=== PATIENT | female | born 1995 | race American Indian/Alaskan Native ===

== ENCOUNTER 2019-11-14 09:12 | Emergency (ER) | payer SELFPAY ==
[2019-11-14 09:38] VITALS: BP 101/62
[2019-11-14] MEDS ORDERED: SODIUM CHLORIDE 0.9% 1000 ML 1,000 ML IV ONE (10:15)
--- NOTE | 2019-11-14 10:15 | Emergency Department Report ---
ED Female HPI - General Chief complaint: Dizziness Stated complaint: DIZZY Time Seen by Provider: 11/14/19 10:12 Source: patient Mode of arrival: Ambulatory Limitations: No Limitations - History of Present Illness Initial comments: Chief complaint: Feeling faint HPI this is a 24-year-old female who is currently 35 weeks estimated due date December 17, 2019 who presents with several weeks of feeling faint. She feels lightheaded. She has had dull global mild headache. She recently returned to live in [place] after living in [place]. She does not have any care established here. She denies vaginal bleeding. She denies vaginal discharge. She denies contraction. She denies abdominal pain. She denies chest pain. Denies shortness of breath. She has been hydrating well. She denies nausea. She denies vomiting. Lightheadedness is worse when she stands up. She did not have any complications with her previous . She has had 2 vaginal deliveries. 1 section. Complaint: other (Several weeks of feeling lightheaded) -: Gradual, week(s) (Several weeks) Severity: mild Consistency: constant Improves with: none Worsens with: other (Standing) Are you Now?: Yes Associated Symptoms: headaches - Related Data Previous Rx's Medication Instructions Recorded Last Taken Type Ibuprofen [Motrin 600 MG tab] 600 mg PO Q8H PRN #30 tablet 04/05/16 Unknown Rx Ondansetron [Zofran TAB] 4 mg PO Q8HR PRN #10 tablet 04/05/16 Unknown Rx Allergies Allergy/AdvReac Type Severity Reaction Status Date / Time No Known Allergies Allergy Verified 11/14/19 09:34 ED Review of Systems ROS: Stated complaint: DIZZY Other details as noted in HPI Comment: All other systems reviewed and negative Constitutional: denies: fever, malaise Respiratory: denies: cough, shortness of breath Cardiovascular: denies: chest pain Gastrointestinal: denies: abdominal pain, nausea, vomiting Neurological: denies: numbness, paresthesias, confusion ED Past Medical Hx - Past Medical History Previous Medical History?: No Hx Hypertension: No Hx Congestive Heart Failure: No Hx Diabetes: No Hx Deep Vein Thrombosis: No Hx Renal Disease: No Hx Sickle Cell Disease: No Hx Seizures: No Hx Asthma: No Hx COPD: No Hx HIV: No - Surgical History Past Surgical History?: Yes Additional Surgical History: - Social History Smoking Status: Never Smoker Substance Use Type: None - Medications Home Medications: Home Medications Medication Instructions Recorded Confirmed Last Taken Type Ibuprofen [Motrin 600 MG tab] 600 mg PO Q8H PRN #30 tablet 04/05/16 Unknown Rx Ondansetron [Zofran TAB] 4 mg PO Q8HR PRN #10 tablet 04/05/16 Unknown Rx ED Physical Exam - General Limitations: No Limitations General appearance: alert, in no apparent distress - Head Head exam: Present: atraumatic, normocephalic - Eye Eye exam: Present: normal appearance - ENT ENT exam: Present: mucous membranes moist - Neck Neck exam: Present: normal inspection, full ROM - Respiratory Respiratory exam: Present: normal lung sounds bilaterally. Absent: respiratory distress, wheezes, rales, rhonchi - Cardiovascular Cardiovascular Exam: Present: regular rate, normal rhythm, normal heart sounds. Absent: systolic murmur, diastolic murmur, rubs, gallop - GI/Abdominal GI/Abdominal exam: Present: soft, normal bowel sounds. Absent: distended, tenderness, guarding, rebound - Extremities Exam Extremities exam: Present: normal inspection - Neurological Exam Neurological exam: Present: alert, oriented X3 - Psychiatric Psychiatric exam: Present: normal affect, normal mood - Skin Skin exam: Present: warm, dry, intact, normal color. Absent: rash ED Course Vital Signs 11/14/19 09:36 Temperature 98.2 F Pulse Rate 107 H Respiratory 18 Rate Blood Pressure 101/62 O2 Sat by Pulse 97 Oximetry ED Medical Decision Making - Lab Data Result diagrams: 11/14/19 10:16 11/14/19 10:16 - Medical Decision Making This is a 24-year-old female who is currently 35 weeks who has lightheadedness. She feels faint. No syncope. I suspect dehydration. No indication of cardiac pulmonary cause such as pulmonary embolism. Blood pressure is normal. She was strongly encouraged to obtain care. Discharged home with outpatient referrals. Upon lab review, there is mild anemia, chemistry revealed volume contraction. Patient received IV fluid therapy in emergency department. Encouraged to continue hydration efforts. Critical care attestation.: If time is entered above; I have spent that time in minutes in the direct care of this critically ill patient, excluding procedure time. ED Disposition Clinical Impression: Lightheadedness, Third trimester Disposition: DC-01 TO HOME OR SELFCARE Is pt being admited?: No Does the pt Need Aspirin: No Condition: Stable Instructions: Near Syncope (ED), Lightheadedness (ED) Referrals: ALVIN MARTELL MD [Staff Physician] - 3-5 Days
[2019-11-14 10:27] LABS: Basophils % (Auto) 0.2 % (0.0-1.8); Eosinophils % (Auto) 0.7 % (0.0-4.3); Hematocrit 27.9 % (30.3-42.9); Hemoglobin 9.9 gm/dl (10.1-14.3); Lymphocytes # (Auto) 1.3 K/mm3 (1.2-5.4); Lymphocytes % (Auto) 19.6 % (13.4-35.0); Mean Corpuscular HGB Conc 36 % (30-34); Mean Corpuscular Volume 85 fl (79-97); Monocytes # (Auto) 0.5 K/mm3 (0.0-0.8); Monocytes % (Auto) 7.6 % (0.0-7.3); Platelet Count 253 K/mm3 (140-440); Red Blood Count 3.27 M/mm3 (3.65-5.03); Red Cell Distribution Width 13.8 % (13.2-15.2)
[2019-11-14 10:45] LABS: BUN/Creatinine Ratio 18; Blood Urea Nitrogen 7 mg/dL (7-17); Calcium 8.9 mg/dL (8.4-10.2); Hemolysis Index 1
== END 2019-11-14 11:53 | disposition home or self-care (01) ==
LOC: ED 09:12
DX: O26.893 Other specified pregnancy related conditions, third trimester (principal); R42 Dizziness and giddiness; R51 Headache; Z3A.35 35 weeks gestation of pregnancy; Z79.1 Long term (current) use of non-steroidal anti-inflammatories (NSAID); Z98.890 Other specified postprocedural states; Z79.899 Other long term (current) drug therapy
CPT/HCPCS: 36415; 80048; 85025; 96360; 99283; J7030

== ENCOUNTER 2021-03-24 14:20 | Emergency (ER) | payer MEDICAID ==
[2021-03-24 15:40] VITALS: BP 143/93
--- NOTE | 2021-03-24 16:50 | Emergency Department Report ---
- General Chief complaint: Skin Rash Stated complaint: BUMP OF CHEST/MISSED PERIOD Time Seen by Provider: 03/24/21 15:42 Source: patient Mode of arrival: Ambulatory Limitations: No Limitations - History of Present Illness Initial comments: Patient is a 25-year-old female presents emergency room with complaints of a bump to her right chest wall that she noticed yesterday. She denies being bit by anything, she denies being cut or scrape by anything. She denies any drainage, fever, chills, vomiting. Patient states that she is also had a regular menstrual cycles. She states that in February he only had a cycle for 2 days and has not yet had a cycle in March. She denies any abdominal pain or vaginal bleeding. No past medical history. No allergies medications. She has not followed up with [facility] regarding her cycle irregularity. - Related Data Previous Rx's Medication Instructions Recorded Last Taken Type Ibuprofen [Motrin 600 MG tab] 600 mg PO Q8H PRN #30 tablet 04/05/16 Unknown Rx Ondansetron [Zofran TAB] 4 mg PO Q8HR PRN #10 tablet 04/05/16 Unknown Rx Ferrous Sulfate [Feosol 325 MG tab] 325 mg PO BID #60 tablet 12/26/19 Unknown Rx Ibuprofen [Motrin] 600 mg PO Q6H PRN #60 tablet 12/26/19 Unknown Rx Mupirocin [Bactroban 2% OINT] 1 applic TP TID #1 tube 03/24/21 Unknown Rx Sulfamethoxazole/Trimethoprim 1 each PO BID 7 Days #14 tablet 03/24/21 Unknown Rx [Bactrim DS TAB] Allergies Allergy/AdvReac Type Severity Reaction Status Date / Time No Known Allergies Allergy Verified 11/14/19 09:34 Abscess Boil HPI - HPI Chief Complaint: Skin Rash Stated Complaint: BUMP OF CHEST/MISSED PERIOD Time Seen by Provider: 03/24/21 15:42 Home Medications: Previous Rx's Medication Instructions Recorded Last Taken Type Ibuprofen [Motrin 600 MG tab] 600 mg PO Q8H PRN #30 tablet 04/05/16 Unknown Rx Ondansetron [Zofran TAB] 4 mg PO Q8HR PRN #10 tablet 04/05/16 Unknown Rx Ferrous Sulfate [Feosol 325 MG tab] 325 mg PO BID #60 tablet 06/19/20 Unknown Rx Ibuprofen [Motrin] 600 mg PO Q6H PRN #60 tablet 12/26/19 Unknown Rx Mupirocin [Bactroban 2% OINT] 1 applic TP TID #1 tube 03/24/21 Unknown Rx Sulfamethoxazole/Trimethoprim 1 each PO BID 7 Days #14 tablet 03/24/21 Unknown Rx [Bactrim DS TAB] Allergies/Adverse Reactions: Allergies Allergy/AdvReac Type Severity Reaction Status Date / Time No Known Allergies Allergy Verified 11/14/19 09:34 ED Review of Systems ROS: Stated complaint: BUMP OF CHEST/MISSED PERIOD Other details as noted in HPI Comment: All other systems reviewed and negative ED Past Medical Hx - Past Medical History Hx Hypertension: No Hx Congestive Heart Failure: No Hx Diabetes: No Hx Deep Vein Thrombosis: No Hx Renal Disease: No Hx Sickle Cell Disease: No Hx Seizures: No Hx Asthma: No Hx COPD: No Hx HIV: No - Surgical History Additional Surgical History: - Social History Smoking Status: Current Every Day Smoker - Medications Home Medications: Home Medications Medication Instructions Recorded Confirmed Last Taken Type Ibuprofen [Motrin 600 MG tab] 600 mg PO Q8H PRN #30 tablet 04/05/16 12/26/19 Unknown Rx Ondansetron [Zofran TAB] 4 mg PO Q8HR PRN #10 tablet 04/05/16 12/26/19 Unknown Rx Ferrous Sulfate [Feosol 325 MG tab] 325 mg PO BID #60 tablet 12/26/19 Unknown Rx Ibuprofen [Motrin] 600 mg PO Q6H PRN #60 tablet 12/26/19 Unknown Rx Mupirocin [Bactroban 2% OINT] 1 applic TP TID #1 tube 03/24/21 Unknown Rx Sulfamethoxazole/Trimethoprim 1 each PO BID 7 Days #14 tablet 03/24/21 Unknown Rx [Bactrim DS TAB] ED Physical Exam - General Limitations: No Limitations General appearance: alert, in no apparent distress - Head Head exam: Present: atraumatic, normocephalic - Eye Eye exam: Present: normal appearance - ENT ENT exam: Present: mucous membranes moist - Neurological Exam Neurological exam: Present: alert, oriented X3 - Psychiatric Psychiatric exam: Present: normal affect, normal mood - Skin Skin exam: Present: warm, dry, other (there is a 1 cm area of induration present to the right upper chest wall just inferior to the clavicle, no fluctuance, no drainage, no necrosis, mild erythema, no crepitus) ED Course Vital Signs 03/24/21 15:36 Temperature 98 F Pulse Rate 99 H Respiratory 18 Rate Blood Pressure 143/93 O2 Sat by Pulse 99 Oximetry ED Medical Decision Making - Medical Decision Making Patient is a 25-year-old female presents emergency room with complaints of a bump to her right chest wall that she noticed yesterday. She denies being bit by anything, she denies being cut or scrape by anything. She denies any drainage, fever, chills, vomiting. Patient states that she is also had a regular menstrual cycles. She states that in February he only had a cycle for 2 days and has not yet had a cycle in March. She denies any abdominal pain or vaginal bleeding. No past medical history. No allergies medications. She has not followed up with [facility] regarding her cycle irregularity. Vitals are stable. On exam:there is a 1 cm area of induration present to the right upper chest wall just inferior to the clavicle, no fluctuance, no drainage, no necrosis, mild erythema, no crepitus. Examination appears consistent with a small area of cellulitis, no drainable abscess at this time. Patient's urine is negative. Patient states that she used to be on control in order to regulate her menses, discussed the importance of outpatient [facility] follow-up regarding her irregular menses. Patient given prescription for Bactrim. Advised patient Please take medication as prescribed. Please do warm compresses 3 times a day. Follow-up with a primary care doctor have area reexamined. Follow-up with [facility] regarding your irregular menses. Return to emergency room for any new or worsening symptoms. Critical care attestation.: If time is entered above; I have spent that time in minutes in the direct care of this critically ill patient, excluding procedure time. ED Disposition Clinical Impression: Irregular menses Cellulitis Qualifiers: Site of cellulitis: trunk Site of cellulitis of trunk: chest wall Qualified Code(s): L03.313 - Cellulitis of chest wall Disposition: HOME / SELF CARE / HOMELESS Is pt being admited?: No Does the pt Need Aspirin: No Condition: Stable Instructions: Cellulitis, Adult Additional Instructions: Please take medication as prescribed. Please do warm compresses 3 times a day. Follow-up with a primary care doctor have area reexamined. Follow-up with [facility] regarding your irregular menses. Return to emergency room for any new or worsening symptoms. Prescriptions: Sulfamethoxazole/Trimethoprim [Bactrim DS TAB] 1 each PO BID 7 Days #14 tablet Mupirocin [Bactroban 2% OINT] 1 applic TP TID #1 tube Referrals: [facility] [Provider Group] - 3-5 Days [facility] [Provider Group] - 3-5 Days Time of Disposition: 17:36 Print Language: GIBR[place]
[2021-03-24 17:31] LABS: HCG Qualitative,Urine Negative (Negative)
== END 2021-03-24 17:47 | disposition home or self-care (01) ==
LOC: ED 14:20
DX: N92.6 Irregular menstruation, unspecified (principal); L03.313 Cellulitis of chest wall; Z98.890 Other specified postprocedural states; F17.200 Nicotine dependence, unspecified, uncomplicated
CPT/HCPCS: 81025; 99283